=== PATIENT | male | born 1980 | race Caucasian/White ===

== ENCOUNTER 2021-12-31 13:35 | Emergency (ER) | payer SELFPAY ==
[~2021-12-31] VITALS: Ht 175.3 cm; Wt 97.1 kg
[2021-12-31 13:57] VITALS: BP 147/100
[2021-12-31] MEDS ORDERED: CEPH500T PO (14:25)
== END 2021-12-31 14:33 | disposition home or self-care (01) ==
LOC: ER 13:35
DX: S60.464A Insect bite (nonvenomous) of right ring finger, initial encounter (principal); W57.XXXA Bitten or stung by nonvenomous insect and other nonvenomous arthropods, initial encounter; Y93.89 Activity, other specified; Y92.89 Other specified places as the place of occurrence of the external cause; Y99.8 Other external cause status